=== PATIENT | female | born 1985 | race Caucasian/White ===

== ENCOUNTER → 2024-11-17 | Outpatient (CLI) | payer OTHER, SELFPAY | END | disposition home or self-care (01) | LOC: OPBI 07:34 | PROVIDERS: PCP Family Medicine; Referring Provider Family Medicine; Visit Provider Family Medicine | DX: Z12.31 Encounter for screening mammogram for malignant neoplasm of breast (principal) | CPT/HCPCS: 77063; 77067 ==

== ENCOUNTER → 2024-11-30 | Outpatient (CLI) | payer OTHER, SELFPAY ==
--- NOTE | 2024-11-30 07:54 | US_ITS ---
PROCEDURE: BREAST LIMITED UNILATERAL 11/30/2024 REASON FOR EXAM: F, Age 38 y/o , ABN MAMM Abnormal left screening mammogram. COMPARISON: Prior mammogram dated November 17, 2024.. TECHNIQUE: Procedure Code: USBRSTLIMIT Modality: US Procedure: BREAST LIMITED UNILATERAL. FINDINGS: The mammographic abnormality corresponds to a 1.2 cm 1.1 cm x 0.6 cm retroareolar cyst. Mildly dilated ducts. US/Breast Limited Unilateral IMPRESSION: The mammographic abnormality corresponds to a 1.2 cm 1.1 cm x 0.6 cm retroareol ar cyst. BI-RADS 2: BENIGN RECOMMENDATION: Routine annual follow-up in 1 Year Reading Location: [place] [address]
--- OUTSIDE RECORDS SUMMARY | 2024-11-30 08:15 | XMS RPT_ITS | CCD ---
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 Name Role Phone Marco Antonio Colmenares Primary Care Unavailable Marco Antonio Colmenares Referring Unavailable Marco Antonio Colmenares Attending Unavailable Marco Antonio Colmenares Primary Care Unavailable Marco Antonio Colmenares Referring Unavailable Marco Antonio Colmenares Attending Unavailable Manish Sanderson Attending Unavailable Allergies Allergy Classification Reported Allergen(s) Allergy Type Date of Onset Reaction(s) Facility (1 source) Azithromycin Drug Allergy 04-28-2024 [facility] Repository (1 source) Codeine Drug Allergy 04-28-2024 [facility] Repository Problems Active Problems Problem Classification Problem Date Documented Da te Episodic/Chronic Other screening for suspected conditions (not mental disorders or infectious disease) (1 source) Encounter for other screening for malignant neoplasm of breast; Translations: [Encounter for other screening for malignant neoplasm of breast] Onset: 11-17-2024 Episodic Past or Other Problems Problem Classification Problem Date Documented Da te Episodic/Chronic Other upper respiratory infections (1 source) Acute pharyngitis, unspecified; Translations: [Acute pharyngitis, unspecified] Onset: 04-28-2024 Episodic Results Test Name Value Interpretation Reference Range Facil ity SCRN MAMM (CAD)W/JASMYN BILATo n 11-17-2024 SCRN MAMM (CAD)W/JASMYN BILAT [facility] Services [address] [id number] SCRN MAMM (CAD)W/JASMYN BILAT MR#: [id number] Acct: [id number] Name: KAYODE GOMEZ Rep #: [id number] : 1985 F 38 From: Kevin londono MD PCP: Dr. Marco Antonio Colmenares MD Status: REG CLI Study: SCRN MAMM (CAD)W/JASMYN BILAT Date of Exam: 10/04 Exam# [id number] Ordering Dr: Marco Antonio Colmenares EXAM: SCRN MAMM (CAD)W/JASMYN BILAT DATE: 11/17/2024 CLINICAL HISTORY: F, Age 38 y/o , SCREENING No family history. TECHNIQUE: Procedure Code: BISMWCADBTOM Modality: MG Procedure: SCRN MAMM (CAD)W/JASMYN BILAT COMPARISON: Baseline study. FINDINGS: TISSUE DENSITY: The breasts are extremely dense, which lowers the sensitivity of mammography. Bilateral Breast Mammographic Findings: There is a 1.1 cm 1.1 cm nodular density in the deep central slightly medial aspect of the left breast. Sonographic correlation recommended for further evaluation. No focal cluster is seen. BI/SCRN MAMM (CAD)W/JASMYN BILAT IMPRESSION: 1.1 cm 1.1 cm nodular density in the deep central slightly medial aspect of the left breast. Sonographic correlation recommended. OVERALL FINAL ASSESSMENT BI-RADS 0: INCOMPLETE - NEED ADDITIONAL IMAGING EVALUATION. RECOMMENDATION: Ultrasound Recommended Additional Recommendation none A letter with findings and recommendations will be mailed to the patient. Reading Location: [id number] CC: Dr. Marco Antonio Colmenares MD Vp Of Customer Experience Strategy: Signed Normal [facility] Urgent Care Visit Reporton 0 04-28-2024 Urgent Care Visit Report [facility] [address], [address] [place] [id number] OFFICE VISIT Date of Service: 04/28/24 MR#: [id number] Acct: [id number] Name: KAYODE GOMEZ Rep #: [id number] : 1985 Provider: NICOLE Diaz Age/Sex: 38/F Location: [email or web address] Status: Signed Intake Vital Signs 12/20/22 09:58 04/28/24 09:12 Height 5 ft 3 in BP 110/60 Blood Pressure Location Lt brachial Position Sitting Respiration 14 Pulse 118 H Pulse Source NIBP Temp 98.1 F Temp Source Oral Pulse Oximetry (%) 96 Oxygen Delivery Method room air Intake Visit Reasons: ST/BILAT EAR PAIN Chief Complaint: ST, bilat ear pain [employer]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 hx tonsillectomy but concerned for strep PFSH Surgical History (Updated 04/28/24 @ 09:13 by Keturah Bañuelos) History of tonsillectomy and adenoidectomy HPI HPI Chief Complaint: ST, bilat ear pain Details: KAYODE GOMEZ, is a 38 F who presents to the office today for initial evaluation at the [facility] for approximately 5-day history of progressively worsening facial pressure/congestion with purulent postnasal drip/cough, irritated throat, and right ear pressure. No complaints of fever, chills, myalgias, fatigue, runny nose, or nausea/vomiting/diarrh ea. No complaints of chest pain/shortness of breath/dyspnea on exertion. No close contacts with similar complaints. Nonsmoker. No other associated symptoms and no other alleviating/aggravatin g factors. ROS Const Constitutional: No other (as above) Exam Const General: cooperative, healthy appearing and no acute distress Nutritional Appearance: average body habitus Orientation: alert, awake and oriented x3 HENMT Head: normal to inspection Ears: hearing grossly normal bilaterally, external ears normal, TM's normal bilaterally and EAC's normal Nose: external nose normal, nares normal, septum normal and no nasal discharge Face and sinus: normal facial exam, sinuses nontender (Though right maxillary fullness to palpation) and face symmetric Mouth: oral mucosae normal, lip normal, tongue normal and oropharynx normal Throat: posterior oropharynx normal, tonsils erythematous without exudate or hypertrophy, uvula midline and postnasal drainage (Purulent) Eyes General: appearance normal, both eyes and all related structures Neck Neck: normal visual inspection, full ROM, no meningeal signs, supple and lymphadenopathy (R>L anterior cervical lymph node swelling/tender to palpation) Neck mass: No Thyroid: thyroid normal Chest Chest palpation inspection: normal inspection of the chest Resp Effort Inspection: normal respiratory effort and able to speak in complete sentences Auscultation: Bilateral: Clear to Auscultation Cardio Palpation: normal PMI Rate: Tachycardic Rhythm: regular rhythm Heart Sounds: S1 normal, S2 normal, no gallops, no murmurs and no rubs Pulses: radial pulses present GI Inspection: normal to inspection Skin General: no rashes or lesions noted Neuro General: patient alert, patient awake and patient oriented x3 Cognition: normal cognition Speech: speech normal Psych Appearance: grossly normal Mental Status: mental status grossly normal Mood: congruent mood Affect: normal affect Speech and Movement: speech and movement normal Attitude: cooperative Diagnoses Acute maxillary sinusitis, unspecified J01.00 Acute pharyngitis, unspecified J02.9 Assessment and Plan Assessment and Plan (1) Acute maxillary sinusitis, unspecified: Status: Acute (2) Acute pharyngitis, unspecified: Status: Acute Plan: See POC results. Amoxicillin as prescribed today. Supportive measures as instructed today. Follow-up with PCP in 3 to 5 days should symptoms not improve, sooner should symptoms worsen or any other concerns develop. Patient states acknowledging understanding all the above. Results Office Rapid Strep A Office Rapid Strep A Negative Last Edit by Keturah Bañuelos on 04/28/24 09:16 Coding Level of Care Code Off vis,est,level 3 Assessment and Plan Assessment and Plan Orders: Orders POC Rapid Strep A Today J02.9 - Acute pharyngitis, unspecified Medications: New amoxicillin 500 mg PO TID 30 tabs 0RF Clinical Quality Measures Falls (more content not included)... Normal [facility] Encounters Encounter Date Encounter Type Care Provider Facility Start: 11-30-2024 ambulatory Arcadia Darrian Pradhan lity:[facility] Start: 11-17-2024 ambulatory Marco Antonio Pradhan lity:[facility] Start: 04-28-2024 End: 04-28-2024 ambulatory Manish RIVERA Facility[place] Payers Date Payer Category Payer Unknown [id number] 2024 Self-pay Unknown [id number] Unknown [id number] Unknown [id number] Summary Purpose Family History No Family History Records Found Advance Directives No Advanced Directives Records Found Additional Source Comments INFORMATION SOURCE (unrecogn ized section and content) DATE CREATED AUTHOR 11/22/2024 [facility] FOR RECORDS PERTAINING TO PATIENTS WHO ARE OR HAVE BEEN ENROLLED IN A CHEMICAL DEPENDENCY/SUBSTANCEABUSE PROGRAM, SOME INFORMATION MAY BE OMITTED. This clinical summary was aggregated from multiple sources. Caution should be exercised in using it in the provision of clinical care. This summary normalizes information from multiple sources, and as a consequence, information in this document may materially change the coding, format and clinical context of patient data. In addition, data may be omitted in some cases. CLINICAL DECISIONS SHOULD BE BASED ON THE PRIMARY CLINICAL RECORDS. [employer] provides no warranty or guarantee of the accuracy or completeness of information in this document.
== END | disposition home or self-care (01) ==
LOC: OPUS 07:53
PROVIDERS: PCP Family Medicine; Referring Provider Family Medicine; Visit Provider Family Medicine
DX: R92.30 Dense breasts, unspecified (principal); R92.8 Other abnormal and inconclusive findings on diagnostic imaging of breast
CPT/HCPCS: 76642